=== PATIENT | female | born 1975 | race Caucasian/White ===

== ENCOUNTER 2016-06-07 22:55 | Observation (INO) | payer BC ==
[2016-06-07] MEDS ORDERED: OXYCODONE-ACETAMINOPHEN 5-325 MG TABLET PO ONE (23:48)
[2016-06-07] MEDS ORDERED: ONDANSETRON 4 MG TAB.RAPDIS PO ONE (23:49)
--- NOTE | 2016-06-07 23:52 | ER Document Report ---
ED Medical Screen (RME) - General Chief Complaint: Abdominal Pain Stated Complaint: ABDOMINAL PAIN Notes: 40-year-old female with known history of cholelithiasis pending surgical referral that comes emergency department with severe right upper quadrant and epigastric pain that started tonight, reports nausea but denies vomiting. Denies fever. Denies other locations of pain. Patient has had a partial hysterectomy, C-sections. TRAVEL OUTSIDE OF THE [place] IN LAST 30 DAYS: No - Related Data Allergies/Adverse Reactions: codeine Allergy (Verified 06/07/16 23:49) erythromycin base Allergy (Verified 06/07/16 23:49) Past Medical History - Social History Chew tobacco use (# tins/day): No Frequency of alcohol use: Occasional Drug Abuse: None Renal/ Medical History: Denies: Hx Peritoneal Dialysis Physical Exam - Vital signs Vitals: Temp Pulse Resp BP Pulse Ox 98.8 F 87 16 119/66 99 06/07/16 23:15 06/07/16 23:15 06/07/16 23:15 06/07/16 23:15 06/07/16 23:15 - General General appearance: Anxious In distress: Moderate - Abdominal Tenderness: Tender, Andre's sign, Guarding - RUQ guarding Course - Vital Signs Vital signs: Temp Pulse Resp BP Pulse Ox 98.8 F 87 16 119/66 99 06/07/16 23:15 06/07/16 23:15 06/07/16 23:15 06/07/16 23:15 06/07/16 23:15
[2016-06-08] MEDS ORDERED: KETOROLAC TROMETHAMINE 60 MG/2 ML SDV IM ONE (00:02)
[2016-06-08 00:31] LABS: ABSOLUTE EOSINOPHILS # (AUTO) 0.3 10^3/uL (0.0-0.6); ABSOLUTE LYMPHOCYTES (AUTO) 2.4 10^3/uL (0.5-4.7); ABSOLUTE MONOCYTES (AUTO) 0.8 10^3/uL (0.1-1.4); ABSOLUTE NEUT (AUTO) 7.5 10^3/uL (1.7-8.2); BASOPHILS % (AUTO) 0.3 % (0-2); EOSINOPHILS % (AUTO) 2.4 % (0-6); HEMATOCRIT 42.8 % (36.0-47.0); HEMOGLOBIN 14.4 g/dL (12.0-15.5); HGB HCT DIFFERENCE 0.4; LYMPHOCYTES % (AUTO) 22.1 % (13-45); MEAN CORPUSCULAR HEMOGLOBIN 31.5 pg (27.0-33.4); MEAN CORPUSCULAR HGB CONC 33.6 g/dL (32.0-36.0); MEAN CORPUSCULAR VOLUME 94 fl (80-97); MONOCYTES % (AUTO) 7.2 % (3-13); RED BLOOD COUNT 4.57 10^6/uL (3.72-5.28); RED CELL DISTRIBUTION WIDTH 12.9 % (11.5-14.0)
[2016-06-08 00:45] LABS: ALANINE AMINOTRANSFERASE 56 U/L (9-52); ALBUMIN 4.2 g/dL (3.5-5.0); ALKALINE PHOSPHATASE 70 U/L (38-126); ANION GAP 11 (5-19); ASPARTATE AMINO TRANSFERASE 31 U/L (14-36); BILIRUBIN,TOTAL 0.5 mg/dL (0.2-1.3); BLOOD UREA NITROGEN 9 mg/dL (7-20); CALCIUM 9.5 mg/dL (8.4-10.2); CARBON DIOXIDE 27 mmol/L (22-30); CHLORIDE 105 mmol/L (98-107); CREATININE RESULT 0.74 mg/dL (0.52-1.25); GLUCOSE 97 mg/dL (75-110); LIPASE 124.7 U/L (23-300); POTASSIUM 4.2 mmol/L (3.6-5.0); TOTAL PROTEIN 6.7 g/dL (6.3-8.2)
--- NOTE | 2016-06-08 03:07 | ER Document Report ---
ED General - General Chief Complaint: Abdominal Pain Stated Complaint: ABDOMINAL PAIN Notes: Patient is a 40-year-old female without past medical history who presents with 2 weeks of progressively worsening right upper quadrant abdominal pain that became severe tonight after eating dinner. States she ate a dinner that was low in fat content per her doctor's recommendations but 20-30 minutes afterwards had acute onset of severe right upper quadrant abdominal pain which she described as stabbing and constant. States that is moderately improved after receiving oxycodone in triage but remains persistent. She states that at times that eating or even drinking water worsen the pain. States that she's had similar symptoms for many months and is been told that she has symptomatic cholelithiasis and is scheduled for an outpatient surgical consultation. However she states she's never had pain to this degree of severity. Notes associated nausea without vomiting. No diarrhea and has continued to have normal bowel movements. She denies any chest pain or shortness of breath. TRAVEL OUTSIDE OF THE [place] IN LAST 30 DAYS: No - Related Data Allergies/Adverse Reactions: codeine Allergy (Verified 06/07/16 23:49) erythromycin base Allergy (Verified 06/07/16 23:49) Past Medical History - General Information source: Patient - Social History Smoking Status: Current Every Day Smoker Chew tobacco use (# tins/day): No Frequency of alcohol use: Occasional Drug Abuse: None Lives with: Spouse/Significant other Family History: Reviewed & Not Pertinent Patient has suicidal ideation: No Patient has homicidal ideation: No Renal/ Medical History: Denies: Hx Peritoneal Dialysis Review of Systems - Review of Systems Notes: Constitutional: Negative for fever. HENT: Negative for sore throat. Eyes: Negative for visual changes. Cardiovascular: Negative for chest pain. Respiratory: Negative for shortness of breath. Gastrointestinal: Positive for abdominal pain and nausea Genitourinary: Negative for dysuria. Musculoskeletal: Negative for back pain. Skin: Negative for rash. Neurological: Negative for headaches, weakness or numbness. 10 point ROS negative except as marked above and in HPI. Physical Exam - Vital signs Vitals: Temp Pulse Resp BP Pulse Ox 98.8 F 87 16 119/66 99 06/07/16 23:15 06/07/16 23:15 06/07/16 23:15 06/07/16 23:15 06/07/16 23:15 Interpretation: Normal Notes: PHYSICAL EXAMINATION: GENERAL: Appears uncomfortable but in no acute distress HEAD: Atraumatic, normocephalic. EYES: Pupils equal round and reactive to light, extraocular movements intact, sclera anicteric, conjunctiva are normal. ENT: nares patent, oropharynx clear without exudates. Moderately dry mucous membranes. NECK: Normal range of motion, supple without lymphadenopathy LUNGS: Breath sounds clear to auscultation bilaterally and equal. No wheezes rales or rhonchi. HEART: Regular rate and rhythm without murmurs ABDOMEN: Soft, focal right upper quadrant tenderness on palpation with a Andre' s sign. Voluntary guarding but no rebound tenderness EXTREMITIES: Normal range of motion, no pitting or edema. No cyanosis. NEUROLOGICAL: No focal neurological deficits. Moves all extremities spontaneously and on command. PSYCH: Normal mood, normal affect. SKIN: Warm, Dry, normal turgor, no rashes or lesions noted. Course - Re-evaluation Re-evalutation: 06/08/16 03:01 Patient presents with an exam and history most consistent with acute cholecystitis. This is confirmed on a right upper quadrant ultrasound which demonstrates a sonographic Andre's as well as gallbladder wall thickening in the setting of cholelithiasis. Patient does have persistent focal right upper quadrant tenderness on exam despite administration of pain medications. The remainder of her laboratories are unremarkable and do not suggest an acute alternative pathology such as pancreatitis or bowel obstruction. This case has been discussed with the surgeon auditing control clerk who is accepted for admission for surgical management. - Vital Signs Vital signs: Temp Pulse Resp BP Pulse Ox 98.8 F 87 16 119/66 99 06/07/16 23:15 06/07/16 23:15 06/07/16 23:15 06/07/16 23:15 06/07/16 23:15 - Laboratory Result Diagrams: 06/08/16 00:00 06/08/16 00:00 Laboratory results interpreted by me: 06/08/16 06/08/16 00:00 00:00 WBC 11.0 H ALT 56 H Discharge - Discharge Clinical Impression: Acute cholecystitis Condition: Fair Disposition: ADMITTED INPATIENT Admitting Provider: Surgicalist - [facility] Admitted: Surgical Floor
[2016-06-08] MEDS ORDERED: ONDANSETRON HCL INJ/PF 4 MG/2 ML SDV IV PRN ×2 (03:20→18:13)
[2016-06-08] MEDS ORDERED: HYDROMORPHONE HCL INJ/PF 2 MG/ML AMPULE INJ PRN (03:21)
[2016-06-08] MEDS ORDERED: D5W IV SCH (04:00)
[2016-06-08] MEDS ORDERED: [UNRECOGNIZED DRUG - OTHER] IV SCH (04:00)
[2016-06-08] MEDS: POTASSI CL 20 MEQ/D5-1/2NS 1L 1000 ML IV PRN ×2 (05:59→23:08)
--- NOTE | 2016-06-08 06:58 | PDOC PROGRESS REPORT ---
Subjective Progress Note for:: 06/08/16 Physical Exam Vital Signs: Temp Pulse Resp BP Pulse Ox 98.5 F 77 16 119/62 96 06/08/16 05:07 06/08/16 05:07 06/07/16 23:15 06/08/16 05:07 06/08/16 05:07 Intake & Output 06/06/16 06/07/16 06/08/16 05:59 06:59 06:59 Weight 77.11 kg Results Impressions: Abdomen Ultrasound 06/07/16 23:50 IMPRESSION: Cholelithiasis with mild gallbladder wall thickening and positive sonographic Andre's sign, suggestive of acute calculous cholecystitis. Fatty infiltration of the liver. Assessment & Plan - Plan Summary Plan Summary: h and p dictated for mark cherry today
--- NOTE | 2016-06-08 07:38 | HISTORY AND PHYSICAL E ---
History and Physical NAME: TOMASZ QUISPE : 1975 AGE: 40Y ADMITTED: 06/08/2016 ROOM: 204 HISTORY: Patient being admitted to the hospital for evaluation and management of acute cholecystitis. Patient presented to the emergency room with a history of acute onset of pain, right upper quadrant area, with nausea for several hours. Pain was not relieved with home remedies, came to the emergency room. Upon evaluation, including ultrasound of the gallbladder, revealed gallstones and *------* in the neck of the gallbladder along with thickening of the gallbladder wall indicative of acute cholecystitis. PAST MEDICAL PROBLEMS: She has a history of gallstones and tonsillitis. She was awaiting for tonsillectomy and then she developed this acute problem before. No other major medical problems. SURGICAL HISTORY: Again, awaiting for tonsillectomy. REVIEW OF SYSTEMS: As per examination. PHYSICAL EXAMINATION: GENERAL: A very pleasant female patient not in any distress at this point. No icterus. HEAD/NECK: No lymphadenopathy. No masses. RESPIRATORY: Both lungs are clear to auscultation. CARDIOVASCULAR: Both heart sounds are regular. No murmurs, no gallops. ABDOMEN: Soft. She does have tenderness in the right upper quadrant area. No palpable masses. No palpable hernia. EXTREMITIES: Warm, well perfused. IMAGING: Her gallbladder ultrasound revealed gallstones with thickening of the gallbladder wall. LABORATORY WORK: Her liver function tests are normal. IMPRESSION: Overall, calculous cholecystitis. PLAN: Admit. IV antibiotics started, pain medications, IV hydration. Plan for cholecystectomy today. DICTATING PHYSICIAN: JUAN R PEMBERTON M.D. [id number] Y#: [id number] ID: [id number] JOB#: [id number] ACCT: [id number] cc: >
[2016-06-08] MEDS ORDERED: ROCURONIUM BROMIDE INJ 50 MG/5 ML VIAL IV ONE ×2 (07:54→14:37)
[2016-06-08] MEDS ORDERED: SUCCINYLCHOLINE CHLORIDE INJ 200 MG/10 ML VIAL ONE (07:54)
--- NOTE | 2016-06-08 10:58 | PDOC PROGRESS REPORT ---
Subjective Progress Note for:: 06/08/16 Subjective:: Patient is still complaining of abdominal pain but hasn't taken any pain medicine Physical Exam Vital Signs: Temp Pulse Resp BP Pulse Ox 98.5 F 85 16 113/50 L 100 06/08/16 07:35 06/08/16 07:35 06/08/16 07:35 06/08/16 07:35 06/08/16 07:35 Intake & Output 06/07/16 06/08/16 06/09/16 06:59 06:59 06:59 Weight 77.11 kg General appearance: PRESENT: mild distress GI/Abdominal exam: PRESENT: other - There is exquisite right upper quadrant tenderness; limited guarding no organomegaly. Results Impressions: Abdomen Ultrasound 06/07/16 23:50 IMPRESSION: Cholelithiasis with mild gallbladder wall thickening and positive sonographic Andre's sign, suggestive of acute calculous cholecystitis. Fatty infiltration of the liver. Assessment & Plan - Diagnosis (1) Acute cholecystitis Is this a current diagnosis for this admission?: YesPlan: 1. Patient has been admitted to surgical service, kept nothing by mouth and IV fluids. Clinically she has acute cholecystitis with cholelithiasis. The patient is an appropriate candidate for interval laparoscopic, possible open cholecystectomy.. I reviewed the mechanics of the operation, as well as a thorough discussion of the risks benefits and alternatives including bleeding, infection, bile duct injury, and risks convert to an open procedure. She expresses her understanding and agrees to proceed. - Time Time Spent with patient: 15-24 minutes
[2016-06-08] MEDS ORDERED: MORPHINE SULFATE 10 MG/ML INJ IV PRN ×2 (13:50→14:30)
[2016-06-08] MEDS ORDERED: LIDOCAINE 2% INJ-PF (20 MG/ML) 10 ML AMPUL ONE (14:37)
[2016-06-08] MEDS ORDERED: NEOSTIGMINE METHYLSULFATE 10 MG/10 ML VIAL ONE (14:37)
[2016-06-08] MEDS ORDERED: GLYCOPYRROLATE INJ 0.4 MG/2 ML VIAL ONE (14:37)
[2016-06-08] MEDS ORDERED: METOCLOPRAMIDE HCL INJ/PF 10 MG/2 ML SDV ONE (14:37)
[2016-06-08] MEDS ORDERED: KETOROLAC TROMETHAMINE 60 MG/2 ML SDV ONE ×2 (14:37→15:53)
[2016-06-08] MEDS ORDERED: ONDANSETRON HCL INJ/PF 4 MG/2 ML SDV ONE ×2 (14:37→15:53)
[2016-06-08] MEDS ORDERED: DEXAMETHASONE SOD PHOSPHATE INJ 4 MG/1 ML VIAL ONE ×2 (14:37→15:53)
[2016-06-08] MEDS ORDERED: FENTANYL CITRATE INJ/PF 250 MCG/5 ML AMPULE ONE (15:52)
[2016-06-08] MEDS ORDERED: MIDAZOLAM 2 MG/2 ML INJ ONE (15:53)
[2016-06-08] MEDS ORDERED: PROPOFOL INJ 200 MG/20 ML VIAL IV ONE (15:53)
[2016-06-08] MEDS ORDERED: ACETAMINOPHEN 100 ML IV ONE (15:53)
[2016-06-08] MEDS ORDERED: BUPIVACAINE HCL 0.25 % INJ/PF (2.5 MG/1 ML) 30 ML VIAL ONE (16:10)
[2016-06-08] MEDS ORDERED: PROMETHAZINE HCL INJ 25 MG/1 ML VIAL IV PRN ×2 (17:27)
[2016-06-08] MEDS ORDERED: MEPERIDINE HCL/PF INJ 25 MG/1 ML DISP.SYRIN IV PRN (17:27)
[2016-06-08] MEDS ORDERED: FENTANYL CITRATE INJ/PF 100 MCG/2 ML AMPUL IV PRN ×3 (17:27)
[2016-06-08] MEDS ORDERED: DIPHENHYDRAMINE HCL 50 MG/ML VIAL IV PRN (17:27)
[2016-06-08] MEDS ORDERED: BUPIVACAINE HCL 0.25 % INJ/PF (2.5 MG/1 ML) 30 ML VIAL INJ ONE (17:49)
--- NOTE | 2016-06-08 18:18 | Operative Report ---
Operative Report DATE OF SURGERY: 06/08/16 PREOPERATIVE DIAGNOSIS: Acute cholecystitis with cholelithiasis POSTOPERATIVE DIAGNOSIS: Same with intra-abdominal adhesions OPERATION: 1. Laparoscopic lysis of adhesions. 2. Laparoscopic cholecystectomy SURGEON: DAVID BRYANT ANESTHESIA: GA TISSUE REMOVED OR ALTERED: 1 gallbladder with contents COMPLICATIONS: None ESTIMATED BLOOD LOSS: minimal INTRAOPERATIVE FINDINGS: See below PROCEDURE: After obtaining informed consent, the patient was taken to the operating room. General Anesthesia was induced; the arms were extended, and the abdomen was exposed, and prepped and draped in a sterile fashion. Instrumentation was set up for laparoscopic cholecystectomy. Surgical plan and surgical timeout were conducted. A vertical incision was made above the umbilicus, and a verres needle was inserted uneventfully into the peritoneal cavity. Pneumoperitoneum was established. The verres needle was removed and a 5 mm trocar was inserted and a 5 mm flexible laparoscope was inserted. Visualization of the peritoneal cavity confirmed safe uneventful entry. Under direct visualization 3 additional 5 mm ports were established, one in the subxiphoid position and second in the subcostal position. Her extensive adhesions between the gallbladder and the gastroduodenal region. These were taken down using a combination of sharp and electrocautery dissection. Once this was accomplished Visualization of the hepatobiliary anatomy revealed no anatomic variations. A grasper was placed on the fundus of the gallbladder and the gallbladder is elevated over the right surface of the liver; a second grasper was used to grasp the infundibulum of the gallbladder. The neck of the gallbladder and junction with the cystic duct was dissected out. This was a widened cystic duct at this point. The Cystic artery was in its usual location medial and cephalad to the cystic duct. The cystic artery was surrounded with a right angle clamp, clipped twice proximally and divided with laparoscopic scissors. We now took the gallbladder down from the fundus. This enabled us to have the gallbladder suspended solely from the slightly enlarged cystic duct. Multiple photos were taken. We secured the cystic duct proximally and distally with 3-0 pds loop sutures. The cystic duct was now divided. the gb was removed uneventfully from the abdominal cavity through the super umbilical port site incision. The specimen was examined, then passed off to pathology for permanent analysis. We returned to the peritoneal cavity check for bleeding, and evidence of bile leak, and there was none. We Confirmed satisfactory placement of clips on cystic duct and cystic artery were secured . At this point we felt the operation was complete. The subcutaneous tissue was then anesthetized with quarter percent Marcaine Sponge and needle counts are correct. All ports removed under direct visualization pneumoperitoneum evacuated, and 5 mm port wounds closed with 0 vicryl, 3-0 Vicryl suture, benzoin and Steri-Strips. The patient was extubated, and taken to the recovery room in stable condition.
[2016-06-08] MEDS ORDERED: PROMETHAZINE HCL INJ 25 MG/1 ML VIAL ONE (18:37)
[2016-06-08] MEDS: MORPHINE SULFATE 10 MG/ML INJ IV PRN (20:44)
[2016-06-09] MEDS: MORPHINE SULFATE 10 MG/ML INJ IV PRN (03:58)
[2016-06-09] MEDS ORDERED: LEVOFLOXACIN 500 MG/D5W RTU 500 MG/100 ML RTUPB IV SCH (06:00)
[2016-06-09] MEDS ORDERED: HYDROCODONE/ACETAMINOPHEN 5-325 MG TABLET PO PRN (10:44)
[2016-06-09 11:07] VITALS: BP 107/53
--- NOTE | 2016-06-09 17:13 | DISCHARGE SUMMARY E ---
Discharge Summary NAME: TOMASZ QUISPE : 1975 AGE: 40Y ADMITTED: 06/08/2016 DISCHARGED: 06/09/2016 REASON FOR ADMISSION: Right upper quadrant abdominal pain. HISTORY OF PRESENT ILLNESS: The patient is a 40-year-old female who presents the emergency room with acute onset of right upper quadrant abdominal pain and nausea. Because of this she went to the emergency room. She had an ultrasound of the abdomen which revealed a gallbladder with gallstones and with 1 gallstone lodged in the neck of the gallbladder. There was also thickening of the gallbladder consistent with acute cholecystitis. PRINCIPAL DIAGNOSIS: Acute cholecystitis. OTHER MEDICAL PROBLEMS: None. PROCEDURES: The patient underwent laparoscopic cholecystectomy with lysis of adhesions on 06/08/2016. HOSPITAL COURSE: The patient was admitted to the hospital and started on IV antibiotics. She underwent the above procedure without problems. She was watched overnight and continued to do well. She was started on a liquid diet which she tolerated. On postoperative day 1 she was doing well without any evidence of infection. She was on minimal pain medication at this time. She was ambulating and tolerating a diet. She was then discharged home in postoperative day 1 in stable condition. DISCHARGE DISPOSITION: The patient will be discharged home. FOLLOWUP: In Surgical Clinic within the next 2 weeks. DIET: Regular diet. ACTIVITY: Ambulate. No lifting over 10 pounds for 2 weeks. May shower in a.m. DISCHARGE MEDICATIONS: [place] 5/325 one to two p.o. q.4-6 h. p.r.n. DICTATING PHYSICIAN: PADMINI OVERTON M.D. [id number] Y#: [id number]: [id number] JOB#: [id number] ACCT: [id number] cc:PADMINI OVERTON M.D., IVAN PA >
== END 2016-06-09 11:35 | disposition home or self-care (01) ==
LOC: ER 22:55 → 2N 06-08 02:45 → UNDOADMOB 06-08 03:25 → INTOOBSV 06-08 03:25 → EH 06-08 03:25 → 2N 06-08 05:00
PROC: 0FT44ZZ Resection of Gallbladder, Percutaneous Endoscopic Approach (ICD-10-PCS; principal; 2016-06-07)
DX: K80.12 Calculus of gallbladder with acute and chronic cholecystitis without obstruction (principal); K82.8 Other specified diseases of gallbladder; F17.200 Nicotine dependence, unspecified, uncomplicated
CPT/HCPCS: 99285; 47562; 96374; 36415; 83690; 85025; 80053; 88304 ×2; 76705; G0378 ×3; J2250; J1956 ×2; J3490 ×2; J1100; J1885; S0119; J3010; J2765; J2270 ×2; J1170; J3480; J2550; J0330; J2405; J2704; J0131; 790